=== PATIENT | male | born 1955 | race Caucasian/White ===

== ENCOUNTER 2018-02-02 07:05 | Day surgery (SDC) | payer BC, MEDICAID ==
[~2018-02-02 07:05] MED LIST: Midazolam 1 MG/ML 2 ML SDV ONE; Propofol 200 MG/20 ML SDV ONE; fentaNYL 100 MCG/2 ML SDV ONE
[2018-02-02] MEDS ORDERED: Glycopyrrolate 0.2 MG/ML 2 ML SDV IVPUSH ONE (07:30)
[2018-02-02] MEDS ORDERED: Dextrose 5%-Lactated Ringers 1,000 ML IV SCH (07:30)
[2018-02-02] MEDS ORDERED: Pantoprazole 40 MG Vial IVPUSH ONE (08:29)
--- NOTE | 2018-02-08 13:57 | OR ---
DATE OF PROCEDURE: 02/02/2018 PREOPERATIVE DIAGNOSIS: Dysphagia referable to cervical area. POSTOPERATIVE DIAGNOSES: 1. Marked esophagitis with associated redness and edema of the hypopharynx and larynx. 2. Mild antral gastritis and duodenitis. OPERATIVE PROCEDURE: 1. Esophagogastroduodenoscopy with: a. Biopsy of esophagogastric junction. b. Biopsies of antrum for CLOtest. ANESTHESIA: IV sedation. INDICATIONS FOR PROCEDURE: This 62-year-old male is presenting with dysphagia referable to the cervical area. The patient denies an overt history of gastroesophageal reflux symptoms and thus he is not on any antisecretory medication. Plan is to proceed with upper GI endoscopy with biopsies and/or dilation as indicated. Potential risks of the procedure including bleeding and perforation were discussed, and the patient wishes to proceed. DETAILS OF PROCEDURE: The patient was taken to the operating room and placed in a left lateral decubitus position. IV sedation was administered, after which the upper GI endoscope was passed orally through the length of the esophagus and into the stomach with retroflexion to view the fundus, thereafter through the pyloric channel and the duodenum into the junction of the third and fourth portions. Findings included a significant redness and edema of the hypopharynx and larynx. Otherwise, there were no mucosal abnormalities per se. As one passed into the upper esophagus, the upper esophageal sphincter and body of the esophagus were unremarkable. At the EG junction, there was some small hiatal hernia, but a quite marked redness and edema of the distal esophageal mucosa consistent with active esophagitis. There was some fibrinous exudate under the portions of the EG junction as well. Within the stomach, retroflexion revealed the hiatal hernia once again. There was some mild redness in the antrum and proximal duodenum. The remainder of the duodenum exam was unremarkable. At this point, biopsies were obtained from the antrum and sent for CLOtest for H. pylori. Multiple biopsies were obtained from esophagogastric junction, and minimal bleeding from the biopsy sites was seen and the procedure then concluded. It appeared most likely the patient's symptoms are primarily related to gastroesophageal reflux disease. The patient will be given Protonix 40 mg IV in the recovery room and then started on Protonix 40 mg daily, and we will see him back on 02/18/2018 to see how he is doing in terms of reflux symptoms. Palomo Talavera MD /[id number]
== END 2018-02-02 09:35 | disposition home or self-care (01) ==
LOC: JP.SDS 07:05
PROVIDERS: ATTEND Surgery
DX: K22.10 Ulcer of esophagus without bleeding (principal); K29.50 Unspecified chronic gastritis without bleeding; K44.9 Diaphragmatic hernia without obstruction or gangrene
CPT/HCPCS: 43239; 87081; 88305; C9113; J2250; J2704; J3010; J7042

== ENCOUNTER 2023-09-09 19:39 | Emergency (ER) | payer MEDICARE, BC ==
[2023-09-09 20:27] LABS: BASOPHILS ABSOLUTE AUTO 0.03 K/uL (0.00-0.10); BASOPHILS PERCENT AUTO 0.2 % (0.1-1.3); EOSINOPHILS ABSOLUTE AUTO 0.01 K/uL (0.00-0.40); EOSINOPHILS PERCENT AUTO 0.1 % (0.0-5.4); HEMATOCRIT 43.4 % (38.4-49.7); HEMOGLOBIN 14.9 g/dL (12.9-16.9); IMMATURE GRAN ABSOLUTE AUTO 0.06 K/uL (0.00-0.23); IMMATURE GRAN PERCENT AUTO 0.4 % (0.0-0.7); LYMPHOCYTES ABSOLUTE AUTO 0.97 K/uL (0.8-3.3); LYMPHOCYTES PERCENT AUTO 6.9 % (11.4-47.7); MEAN CORPUSCULAR HEMOGLOBIN 33.5 pg (31.6-35.5); MEAN CORPUSCULAR HGB CONC 34.3 g/dL (31.6-35.5); MEAN CORPUSCULAR VOLUME 97.5 fL (81.4-99.0); MONOCYTES ABSOLUTE AUTO 0.75 K/uL (0.20-0.90); MONOCYTES PERCENT AUTO 5.3 % (3.3-12.6); NEUTROPHILS ABSOLUTE AUTO 12.28 K/uL (1.0-7.6); NEUTROPHILS PERCENT AUTO 87.1 % (40.0-78.1); PLATELET COUNT,PLT 314 K/uL (130-375); RED BLOOD CELL COUNT 4.45 M/uL (4.14-5.76); WHITE BLOOD CELL COUNT,WBC 14.1 K/uL (3.2-11.0)
[2023-09-09 20:53] LABS: A/G RATIO 0.9 (1.2-2.2); ALANINE AMINOTRANSFERASE,ALT 18 U/L (12-78); ALBUMIN 3.6 g/dL (3.4-5.0); ALKALINE PHOSPHATASE 86 U/L (46-116); ASPARTATE AMNIOTRANSFERASE,AST 32 U/L (15-37); BILIRUBIN TOTAL 1.1 mg/dL (0.2-1.0); BLOOD UREA NITROGEN,BUN 14 mg/dL (7-18); C-REACTIVE PROTEIN 0.28 mg/dL (0.0-0.3); CALCIUM 8.6 mg/dL (8.5-10.1); CARBON DIOXIDE,CO2 26 mmol/L (21-32); CHLORIDE,CL 101 mmol/L (100-108); CREATININE 1.2 mg/dL (0.8-1.3); EST CRCL DRUG DOSING (CG) 63.62 mL/min; ESTIMATED GFR 66 mL/min (>60); GLUCOSE RANDOM 136 mg/dL (74-106); POTASSIUM,K 4.5 mmol/L (3.6-5.2); PROTEIN TOTAL,TP 7.7 g/dL (6.4-8.2); SODIUM,NA 135 mmol/L (140-148); TROPONIN I HIGH SENSITIVITY 7.4 pg/mL (<=60.3)
[2023-09-09] MEDS ORDERED: Alum Hydrox/Mag Hydrox/Simeth 15 ML, Lidocaine 2% 15 ML PO ONE ×2 (21:00)
[2023-09-09 21:01] LABS: ANION GAP 12.5 mmol/L (5.0-14.0)
[2023-09-09] MEDS ORDERED: Pantoprazole 40 MG Tab.CR PO STA (21:30)
== END 2023-09-09 21:51 | disposition home or self-care (01) ==
LOC: JP.ED 19:39
DX: K22.2 Esophageal obstruction (principal)
CPT/HCPCS: 36415; 71046; 80053; 84484; 85025; 86140; 93005; 99285; A9270

== ENCOUNTER 2023-09-12 06:12 | Day surgery (SDC) | payer MEDICARE, BC ==
[2023-09-12] MEDS ORDERED: Sodium Chloride 0.9% 1,000 ML IV SCH (06:45)
[2023-09-12] MEDS ORDERED: Propofol 200 MG/20 ML SDV ONE (06:50)
[2023-09-12] MEDS ORDERED: fentaNYL 50 MCG/ML SDV ONE (06:50)
== END 2023-09-12 09:25 | disposition home or self-care (01) ==
LOC: JP.SDS 06:12
PROVIDERS: ATTEND Surgery
DX: K31.A19 Gastric intestinal metaplasia without dysplasia, unspecified site (principal); K22.89 Other specified disease of esophagus
CPT/HCPCS: 43239; J2704; J3010; J7030